=== PATIENT | male | born 1990 | race Caucasian/White ===

== ENCOUNTER 2024-05-03 11:45 | Inpatient (IN) | payer OTHER ==
[~2024-05-03] VITALS: Ht 162.6 cm; Wt 68.0 kg
[2024-05-03] MEDS: TETANUS, DIPHTHERIA, PERTUSSIS VAC/PF 0.5ML (>10YR OLD) IM ONE (12:45)
[2024-05-03 14:36] LABS: BASOPHILS % 0.3 % (0.0-2.0); EOSINOPHILS % 1.6 % (0.0-5.0); HEMATOCRIT. 44.2 % (42.0-52.0); HEMOGLOBIN. 14.6 g/dL (14.0-18.0); MEAN CORPUSCULAR VOLUME 90.7 fL (80.0-94.0); MEAN PLATELET VOLUME 8.6 fl (7.4-10.4); MONOCYTES % 9.5 % (2.0-8.0); NEUTROPHILS % 59.6 % (40.0-76.0); PLATELET 316 x1000/uL (130-400); RED BLOOD CELL COUNT 4.88 mill/uL (4.7-6.1); RED CELL DISTRIBUTION WIDTH 13.1 % (11.6-14.6); WHITE BLOOD COUNT 7.3 x1000/uL (4.5-11.0)
[2024-05-03 14:40] LABS: CHLORIDE 106 mEq/L (98-107); POTASSIUM 3.7 mEq/L (3.5-5.1); SODIUM 140 mEq/L (136-145)
[2024-05-03 14:41] LABS: CARBON DIOXIDE 27 mEq/L (21-32)
[2024-05-03 14:42] LABS: CALCIUM 9.7 mg/dL (8.7-10.4)
[2024-05-03 14:46] LABS: GLUCOSE 81 mg/dL (70-105); UREA NITROGEN BLOOD 12 mg/dL (9-23)
[2024-05-03 14:49] LABS: INR 0.9; PROTHROMBIN TIME 10.6 sec (9.6-11.0)
[2024-05-03] MEDS: CEFAZOLIN 1000MG PREMIX 50 ML IV ONE (15:57)
[2024-05-03] MEDS ORDERED: ACETAMINOPHEN 325MG TABLET PO PRN ×2 (17:00)
[2024-05-03] MEDS ORDERED: ONDANSETRON HCL 4MG/2ML INJ IV PRN (17:00)
[2024-05-03] MEDS ORDERED: MAGNESIUM/ALUMINUM HYDROXIDE/SIMETHICONE 30ML UDC PO PRN (17:00)
[2024-05-03] MEDS ORDERED: LORAZEPAM 0.5MG TABLET PO PRN (17:00)
[2024-05-03] MEDS ORDERED: DOCUSATE SODIUM 100MG CAPSULE PO PRN (17:00)
[2024-05-03] MEDS ORDERED: GUAIFENESIN 200MG/10ML SUGAR FREE UDC PO PRN (17:00)
[2024-05-03] MEDS ORDERED: IPRATROPIUM/ALBUTEROL 0.5-3(2.5)MG/3ML NEB HHN PRN (17:00)
[2024-05-03] MEDS ORDERED: CLONIDINE 0.1MG TABLET PO PRN (17:00)
[2024-05-03] MEDS: DEXT 5%/0.45% NACL 1000ML 1,000 ML IV ONE (18:11)
[2024-05-03] MEDS ORDERED: KETOROLAC 15MG/ML VIAL IV PRN (18:15)
[2024-05-03] MEDS ORDERED: NALOXONE HCL 0.4MG/ML VIAL IV PRN (18:15)
[2024-05-03] MEDS ORDERED: MORPHINE SULFATE 2 MG/ML INJ (NOT FOR IM USE) IV PRN (18:15)
[2024-05-04 00:18] VITALS: BP 126/84; PULSE 65; RESP 18; TEMP 36.61404; O2SAT 99
[2024-05-04 00:19] VITALS: BP 126/84; PULSE 65; RESP 18; TEMP 36.6404
[2024-05-04 04:00] VITALS: BP 121/61; PULSE 60; RESP 18; TEMP 36.3918; O2SAT 99
[2024-05-04 07:11] LABS: CHLORIDE 105 mEq/L (98-107); POTASSIUM 3.5 mEq/L (3.5-5.1); SODIUM 141 mEq/L (136-145)
[2024-05-04 07:12] LABS: CALCIUM 9.6 mg/dL (8.7-10.4); CARBON DIOXIDE 28 mEq/L (21-32)
[2024-05-04 07:17] LABS: GLUCOSE 84 mg/dL (70-105); UREA NITROGEN BLOOD 14 mg/dL (9-23)
[2024-05-04 07:18] LABS: ALANINE AMINOTRANSFERASE 24 IU/L (10-49)
[2024-05-04 07:19] LABS: ALBUMIN 4.9 g/dL (3.2-4.8); ASPARTATE AMINOTRANSFERASE 23 IU/L (<34); BILIRUBIN DIRECT 0.6 mg/dL (<=3.0); BILIRUBIN TOTAL 2.4 mg/dL (0.1-1.0); PHOSPHORUS 3.1 mg/dL (2.5-4.9); PROTEIN TOTAL 7.3 g/dL (6.0-8.3)
[2024-05-04 08:00] VITALS: BP 126/54; PULSE 78; RESP 18; TEMP 36.89184; O2SAT 100
[2024-05-04 08:44] LABS: HEMATOCRIT. 44.1 % (42.0-52.0); HEMOGLOBIN. 15.2 g/dL (14.0-18.0); MEAN CORPUSCULAR HEMOGLOBIN 31.2 pg (28.0-32.0); MEAN CORPUSCULAR HGB CONC 34.4 g/dL (31.0-37.0); MEAN CORPUSCULAR VOLUME 90.8 fL (80.0-94.0); MEAN PLATELET VOLUME 9.5 fl (7.4-10.4); PLATELET 305 x1000/uL (130-400); RED BLOOD CELL COUNT 4.86 mill/uL (4.7-6.1); RED CELL DISTRIBUTION WIDTH 13.2 % (11.6-14.6); WHITE BLOOD COUNT 5.9 x1000/uL (4.5-11.0)
[2024-05-04 08:46] LABS: DIFFERENTIAL COMMENT 1
[2024-05-04] MEDS: LIDOCAINE HCL 1% 20ML VIAL INFIL NR (11:35)
[2024-05-04 12:00] VITALS: BP 105/59; PULSE 68; RESP 17; TEMP 37.05852; O2SAT 100
[2024-05-04] MEDS ORDERED: CEPH500C2 MT (12:51)
[2024-05-04 13:59] VITALS: BP 121/76; PULSE 68; TEMP 98.7; O2SAT 100
[2024-05-04 16:01] LABS: PLATELET ESTIMATE NORMAL
== END 2024-05-04 15:02 | disposition home or self-care (01) | DRG 581 ==
LOC: ER 11:45 → 6EST 14:46
PROVIDERS: ADMIT Internal Medicine; ATTEND Internal Medicine
PROC: 0HQRXZZ Repair Toe Nail, External Approach (ICD-10-PCS; principal; 2024-05-04)
DX: S90.122A Contusion of left lesser toe(s) without damage to nail, initial encounter (principal); S91.115A Laceration without foreign body of left lesser toe(s) without damage to nail, initial encounter; L03.032 Cellulitis of left toe; J45.909 Unspecified asthma, uncomplicated; W20.8XXA Other cause of strike by thrown, projected or falling object, initial encounter; R03.0 Elevated blood-pressure reading, without diagnosis of hypertension; Z87.891 Personal history of nicotine dependence; Z91.81 History of falling; Y93.89 Activity, other specified; Y92.89 Other specified places as the place of occurrence of the external cause; Y99.8 Other external cause status
CPT/HCPCS: 36415; 73620; 80048; 80076; 83036; 83735; 84100; 85025; 86850; 86900; 90715; 99285; J0690; J3490